=== PATIENT | male | born 1990 | race Two or more races ===

== ENCOUNTER 2022-12-25 15:43 | Emergency (ER) | payer OTHER ==
[~2022-12-25] VITALS: Ht 165.1 cm; Wt 59.0 kg
[2022-12-25 18:42] LABS: HEMATOCRIT 43.8 % (39.0-48.0); HEMOGLOBIN 14.4 g/dL (13-16.00); MEAN CORPUSCULAR HEMOGLOBIN 22.3 pg (27.00-32.0); MEAN CORPUSCULAR HGB CONC 32.9 g/dl (32.0-36.0); RED BLOOD COUNT 6.46 M/uL (4.00-6.00); RED CELL DISTRIBUTION WIDTH 13.6 % (11.5-14.5)
[2022-12-25 19:02] LABS: MEAN CELL VOLUME 67.9 fL (80.0-100.00)
[2022-12-25 19:03] LABS: PLATELET COUNT 170 K/uL (150-450)
== END 2022-12-25 22:24 | disposition home or self-care (01) ==
LOC: ER 15:43
PROVIDERS: General Practice
DX: J11.1 Influenza due to unidentified influenza virus with other respiratory manifestations (principal); Z20.822 Contact with and (suspected) exposure to COVID-19